=== PATIENT | female | born 1965 | race Caucasian/White ===

== ENCOUNTER → 2018-12-22 18:00 | Outpatient (CLI) | payer MEDICAID, SELFPAY ==
[2018-12-22 18:51] LABS: Basophils # 0.1 K/mm3 (0-0.2); Basophils % 0.7 % (0.1-2.0); Eosinophils # 1.8 K/mm3 (0.0-0.4); Eosinophils % 19.4 % (0.1-12.0); Hematocrit 41.4 % (37.0-47.0); Hemoglobin 12.9 g/dL (12.2-16.2); Lymphocytes # 2.9 K/mm3 (0.7-4.5); Lymphocytes % 30.9 % (10-50); Mean Corpuscular Hemoglobin 28.4 pg (27.0-31.2); Mean Corpuscular Volume 91.6 fl (81-99); Mean Platelet Volume 9.1 fl (7.4-10.4); Monocytes # 0.5 K/mm3 (0.1-1.0); Monocytes % 5.7 % (1.7-9.3); Neutrophils # 4.1 K/mm3 (1.8-7.8); Neutrophils % 43.3 % (37.0-80.0); Platelet Count 334 K/mm3 (142-424); Red Blood Count 4.53 M/mm3 (4.20-5.40); Red Cell Distribution Width 12.1 % (11.5-17.5); White Blood Count 9.5 K/mm3 (4.8-10.8)
[2018-12-22 18:59] LABS: Alanine Aminotransferase 30 U/L (12-78); Albumin Level 4.1 gm/dL (3.4-5.0); Albumin/Globulin Ratio 1.4 (1.1-1.8); Alkaline Phosphatase 82 U/L (46-116); Anion Gap 18.2 mEq/L (5-15); Aspartate Amino Transferase 17 U/L (15-37); Bilirubin,Total 0.2 mg/dL (0.2-1.0); Blood Urea Nitrogen 17 mg/dL (7-18); Carbon Dioxide 22 mmol/L (21.0-32.0); Chloride 103 mmol/L (98-107); Chol/HDL Ratio 6.9 (1-3.5); Cholesterol 180 mg/dL (140-200); Creatinine,Serum 0.76 mg/dL (0.55-1.02); Estimated Glomerular Filt Rate 80 ml/min (>60); GFR (African American) 97 ML/MIN (>60); Glucose 103 mg/dL (74-106); HDL Cholesterol 26 mg/dL (29-89); LDL Cholesterol 87 mg/dL (0-130); Potassium 4.2 mmoL/L (3.5-5.1); Sodium 139 mmol/L (136-145); T4 (Thyroxine) 10.8 ug/dl (4.7-13.3); Thyroid Stimulating Hormone 0.83 uIU/ml (0.358-3.740); Total Protein,Serum 7.1 gm/dL (6.4-8.2); Triglycerides 337 mg/dL (30-200); VLDL Cholesterol 67 mg/dL (0-40)
[2018-12-24 08:13] LABS: Hep A Ab, IgM Negative (Negative); Hepatitis B Core Antibody IgM Negative (Negative); Hepatitis B Surface Antigen Negative (Negative)
[2018-12-24 12:32] LABS: Hepatitis C Antibody <0.1 s/co ratio (0.0-0.9)
== END ==
PROVIDERS: Visit Provider Nurse Practitioner Family
DX: R10.9 Unspecified abdominal pain (principal)
CPT/HCPCS: 80053; 80061; 80074; 84436; 84443; 85025

== ENCOUNTER → 2018-12-27 12:33 | Outpatient (CLI) | payer MEDICAID, SELFPAY ==
[2018-12-27 12:34] LABS: Adenovirus F 40/41, stool Not Detected (NotDetected); Astrovirus Not Detected (NotDetected); Campylobacter Not Detected (NotDetected); Clostridium Difficile A/B, PCR Not Detected (NotDetected); Cryptosporidium Not Detected (NotDetected); Cyclospora Cayetanesis Not Detected (NotDetected); Entamoeba histolytica Not Detected (NotDetected); Enteroaggregative E coli Not Detected (NotDetected); Enteropathogenic E coli Not Detected (NotDetected); Enterotoxigenic E coli Not Detected (NotDetected); Giardia lamblia Not Detected (NotDetected); Norovirus Not Detected (NotDetected); Plesimonas Shigalloides, PCR Not Detected (NotDetected); Rotavirus A Not Detected (NotDetected); Salmonella, PCR Not Detected (NotDetected); Sapovirus Not Detected (NotDetected); Shiga-like toxin E coli Not Detected (NotDetected); Shigella Enterovasive E coli Not Detected (NotDetected); Vibrio Cholerae Not Detected (NotDetected); Vibrio, PCR Not Detected (NotDetected); Yersinia Entercolitica, PCR Not Detected (NotDetected)
== END ==
PROVIDERS: Visit Provider Emergency Medicine
DX: R19.7 Diarrhea, unspecified (principal)
CPT/HCPCS: 87507

== ENCOUNTER → 2018-12-29 08:49 | Outpatient (CLI) | payer MEDICAID, SELFPAY ==
--- NOTE | 2018-12-29 08:51 | US_ITS ---
PROCEDURE: US LIVER CLINICAL INDICATION: Enlarged liver COMPARISON: CT ABDOMEN PELVIS W CON from 12/26/2018 FINDINGS: The liver has an unremarkable appearance. There is appropriate direction of blood flow within a non dilated portal vein. Common bile duct is normal at 4 mm. There has been a prior cholecystectomy. Right kidney and pancreas have an unremarkable appearance. IMPRESSION: Status post cholecystectomy otherwise negative hepatic/right upper quadrant ultrasound Dictated by: Meliton Meredith MD 12/30/2018 06:05 Electronically signed by Meliton Meredith MD in [place] 12/30/2018 06:05
== END ==
PROVIDERS: PCP Emergency Medicine; Visit Provider Nurse Practitioner Family
DX: R16.0 Hepatomegaly, not elsewhere classified (principal)
CPT/HCPCS: 76705

== ENCOUNTER → 2019-01-31 10:41 | Outpatient (CLI) | payer MEDICAID, SELFPAY ==
--- NOTE | 2019-01-31 10:44 | MM_ITS ---
PROCEDURE: MM DIG SCREENING MAMM BI W/CAD CLINICAL INDICATION: Screening There is a history of breast cancer patient's cousin. COMPARISON: None, this is baseline exam TECHNIQUE: Standard CC and MLO images were obtained. R2 CAD reviewed. FINDINGS: Mild fibroglandular densities are seen in the subareolar regions of both breasts. There are 3 small asymmetric nodular densities upper portion left breast only definitely seen on the MLO projection. Since this is a baseline exam were recommended patient return for spot compression MLO view and 90 degree lateral view and rolled CC views and ultrasound may be necessary as well. There are no suspicious microcalcifications. IMPRESSION: Fibrofatty parenchyma with small asymmetric densities left breast BI-RAD Category: 0 Need Additional Imaging Evaluation FOLLOW-UP: IMM Immediate Follow-up Recommended (A letter has been sent to the patient regarding results of the study.) Dictated by: Dr. Chang Irene MD 02/02/2019 13:[address] Chang Irene MD in [place] 02/02/2019 13:18
== END ==
PROVIDERS: PCP Emergency Medicine; Visit Provider Nurse Practitioner Family
DX: Z12.31 Encounter for screening mammogram for malignant neoplasm of breast (principal)
CPT/HCPCS: 77067

== ENCOUNTER → 2019-02-27 13:30 | Outpatient (CLI) | payer MEDICAID, SELFPAY ==
--- NOTE | 2019-02-27 13:32 | US_ITS ---
PROCEDURE: MM DIG MAMM DX UNILAT LT CAD CLINICAL INDICATION: abn mamm Follow-up abnormal mammogram, follow-up asymmetric density left breast COMPARISON: MM DIG SCREENING MAMM BI W/CAD from 01/31/2019 US BREAST LT COMPLETE from 02/27/2019 TECHNIQUE: Spot compression views obtained of the left breast along with left breast ultrasound FINDINGS: Average fibroglandular tissue. The nodular areas noted on the mammogram 01/31/2019 appear to compress out as fibroglandular tissue. A these nodular densities were not evident on the orthogonal view. Left breast ultrasound: No solid or cystic abnormalities evident. IMPRESSION: No discrete lesion evident. Asymmetric densities may have been due to cysts which have since resolved or overlapping fibroglandular tissue BI-RAD Category: 2 Benign Finding(s) FOLLOW-UP: 1YR 1 Year Follow-up (A letter has been sent to the patient regarding results of the study.) Dictated by: Meliton Meredith MD 03/04/2019 10:55 Electronically signed by Meliton Meredith MD in [place] 03/04/2019 10:55
== END ==
PROVIDERS: PCP Nurse Practitioner Family; Visit Provider Nurse Practitioner Family
DX: R92.8 Other abnormal and inconclusive findings on diagnostic imaging of breast (principal)
CPT/HCPCS: 76641; 77065

== ENCOUNTER → 2020-04-22 10:14 | Outpatient (CLI) | payer MEDICAID, SELFPAY ==
[2020-04-22 11:21] LABS: Coronavirus 19 IgG Antibody Negative (Negative); Coronavirus 19 IgM Antibody Negative (Negative)
== END ==
PROVIDERS: Visit Provider Surgery
DX: Z01.818 Encounter for other preprocedural examination (principal); Z20.822 Contact with and (suspected) exposure to COVID-19; Z12.11 Encounter for screening for malignant neoplasm of colon; Z86.010 Personal history of colon polyps
CPT/HCPCS: 36415; 86328

== ENCOUNTER 2020-04-23 08:35 | Day surgery (SDC) | payer MEDICAID, SELFPAY ==
[2020-04-18 10:50] VITALS: BMI 25.4
[2020-04-23 08:50] VITALS: BP 148/88; PULSE 72; RESP 18; TEMP 36.3; O2SAT 97
[2020-04-23 09:08] VITALS: O2SAT 97
[2020-04-23 09:59] VITALS: BP 137/86; PULSE 77; RESP 16; TEMP 36.1; O2SAT 96
--- NOTE | 2020-04-23 10:00 | HMH.SCOPE ---
- Procedure: Date: 04/23/20 Patient Date of :: 1965 Procedure Performed:: Total colonoscopy to terminal ileum with multiple biopsies and polypectomy by snare and biopsy forceps Indications:: Patient presents for follow-up colonoscopy. EGD and colonoscopy were performed on 02/07/2019. She had a small diminutive hiatal hernia. Biopsies on upper endoscopy did reveal some chronic peptic duodenitis and reactive gastropathy as well as fundic gland polyps and findings of reflux esophagitis. Following these findings I had started her on proton pump inhibitors. Colonoscopy revealed multiple polyps. There were approximately 14 polyps removed. These returned as tubular adenoma x3 and she did have 2 sessile serrated adenomas. 1 of these was located at the hepatic flexure as a ridge polyp and was quite difficult to remove and assess. It was felt however that the polyp was removed in its entirety. The area was marked with Alyse ink. Due to this fact I had advocated 1 year follow-up colonoscopy. Of note, previous upper endoscopy and colonoscopy combined procedure time was 2 hours. Patient states that she still does have some chronic abdominal symptomatology with frequent looser stools and mid abdominal distention described as a ball . Of note, she has previously undergone cholecystectomy. Performing Provider:: Boogie Rojo MD Referring Provider:: Misbah Cazares MD Sedation:: MAC sedation Procedure:: Patient was taken to endoscopy procedure room. She was positioned in a lateral decubitus position. Adequate intravenous sedation was achieved with anesthesia titration of propofol. Variable stiffness Olympus colonoscope was inserted via the anus. Was advanced to the cecum with some minor difficulty due to floppiness and redundancy of the sigmoid colon. Within the cecum the ileocecal valve and appendiceal orifice were clearly identified. Colonoscope was advanced a short distance into the terminal ileum which appeared grossly normal. Colonoscope was withdrawn through the colon with careful surveillance. There were several biopsies obtained differentiating right and left colon as random right and random left biopsies. In the proximal transverse colon just proximal to the previous marking there was a tiny diminutive polyp removed with cold biopsy forceps. Descending colon there is a minuscule polyp removed with cold biopsy forceps. In the sigmoid colon there was a adenomatous appearing ridge polyp which was removed piecemeal fashion using cold snare. The area was then marked with Alyse ink. Sigmoid colon just distal to this is a tiny diminutive polyp removed with cold biopsy forceps. In the distal sigmoid there is a small polyp removed with cold cutting snare. In the rectum there was a hyperplastic appearing polyp removed with cold snare. Retroflexion within the rectum revealed no evidence of any pathologic internal hemorrhoids. Colonoscope was withdrawn. Findings:: She had a total of approximately 6 polyps removed. This most notable was sigmoid colon polyp as a ridge polyp removed in a piecemeal fashion using cold snare. This was marked with Alyse ink. Previous site of marking revealed no evidence of any recurrent polyps. Recommendations:: Likely repeat likely repeat colonoscopy 2 years. GI symptomatology likely dietary/functional/lifestyle. Complications:: None immediately apparent Estimated blood obtained (mL): 3 Comment:: Procedure time was approximately 55 minutes. She required 1300 mg of propofol.
--- NOTE | 2020-04-23 10:06 | HMH.ANESCL ---
[facility] Anesthesia Checklist - Patient Identification Patient Identification: Arm Band - Structural Data Admitted From: Home Planned Operative Procedure/s: colon Consent for Planned Operative Procedure(s) Verified: Yes Verified Documents: Surgical Consent - Chart Verification Results Verified: None - Additional verifications Anesthesia Reactions: No - Anesthesia Plan Anesthesia Risk discussed: Yes Anesthesia Plan: Verified ASA Class: III Anesthesia Type: General [facility] History I have reviewed the patient's past medical history: Yes Medical History: Reports:: Gastroesophageal Reflux Disease(GERD) Denies:: Cancer, Diabetes Mellitus Type 1, Diabetes Mellitus Type 2, Hypertension, Internal Pacemaker, MRSA, Seizures *Have you ever received a pneumonia vaccine?: No *Have you received a flu vaccine this season?: No Other Medical History: Reports: Other Anesthesia experience/problems:: none Other Surgeries: Yes: No Previous Surgery, Cholecystectomy, Colonoscopy, EGD, Hernia Repair, Tubal Ligation. No: Pacemaker Amputation: No Fractures: No - *Social History Last grade of school completed: Advanced degree Smoking Status: Current every day smoker Tobacco Type: cigarettes # Packs/Day (cigarettes): 1 Alcohol Intake: current Alcohol Intake Frequency:: a few times a month Substance Use Type: denies use *Occupational Status:: unemployed Housing: house Household Members: spouse *Travel in the last 8 weeks: None Family Hx:: Unable to obtain, No significant family history, Cancer
[2020-04-23 10:09] VITALS: BP 106/81; PULSE 79; RESP 16; O2SAT 97
[2020-04-23 10:19] VITALS: BP 139/73; PULSE 76; RESP 16; TEMP 36.1; O2SAT 98
== END 2020-04-23 10:22 | disposition home or self-care (01) ==
LOC: OUTP 08:36
PROVIDERS: PCP Emergency Medicine; Visit Provider Surgery
PROC: 0DJD8ZZ Inspection of Lower Intestinal Tract, Via Natural or Artificial Opening Endoscopic (ICD-10-PCS; CPT 45380; principal; 2020-04-23 09:30)
DX: Z12.11 Encounter for screening for malignant neoplasm of colon (principal); Z87.19 Personal history of other diseases of the digestive system; Z86.010 Personal history of colon polyps; K63.5 Polyp of colon; K21.9 Gastro-esophageal reflux disease without esophagitis; Z72.0 Tobacco use; Z79.899 Other long term (current) drug therapy
CPT/HCPCS: 45380; 45385; 45381

== ENCOUNTER 2020-05-21 13:43 | Emergency (ER) | payer MEDICAID, SELFPAY ==
[2020-05-21 13:44] VITALS: BP 141/93; PULSE 92; RESP 18; TEMP 36.9; O2SAT 97; BMI 24.0
[2020-05-21 14:20] VITALS: BP 149/90; PULSE 81; O2SAT 97
[2020-05-21 14:33] LABS: Alanine Aminotransferase 35 U/L (12-78); Albumin Level 5.1 g/dl (3.5-5.0); Albumin/Globulin Ratio 1.5 (1.1-1.8); Alkaline Phosphatase 84 U/L (38-126); Anion Gap 12.8 mEq/L (5-15); Aspartate Amino Transferase 37 U/L (14-36); Bilirubin,Total 0.3 mg/dl (0.2-1.3); Blood Urea Nitrogen 12 mg/dl (7-17); Carbon Dioxide 27 mmol/L (22.0-30.0); Chloride 106 mmol/L (98-107); Creatinine Clearance Estimated 64 mL/min (50-200); Estimated Glomerular Filt Rate 65 ml/min (>60); GFR (African American) 79 ML/MIN (>60); Globulin 3.3 g/dL (1.3-3.2); Glucose 131 mg/dl (74-100); Potassium 3.8 mmoL/L (3.5-5.1); Sodium 142 mmol/L (136-145); Total Protein,Serum 8.4 g/dl (6.3-8.2)
[2020-05-21 14:35] LABS: Basophils # 0.1 K/mm3 (0-0.2); Basophils % 0.8 % (0.1-2.0); Eosinophils # 0.3 K/mm3 (0.0-0.4); Eosinophils % 3.2 % (0.1-12.0); Hematocrit 45.8 % (37.0-47.0); Hemoglobin 14.8 g/dL (12.2-16.2); Lactic Acid 2.5 mmol/L (0.7-2.1); Lymphocytes # 2.8 K/mm3 (0.7-4.5); Lymphocytes % 31.1 % (10-50); Mean Corpuscular HGB Conc 32.4 g/dL (31.8-35.4); Mean Corpuscular Hemoglobin 30.1 pg (27.0-31.2); Mean Corpuscular Volume 92.9 fl (81-99); Mean Platelet Volume 8.3 fl (7.4-10.4); Monocytes # 0.5 K/mm3 (0.1-1.0); Monocytes % 5.6 % (1.7-9.3); Neutrophils # 5.3 K/mm3 (1.8-7.8); Neutrophils % 59.3 % (37.0-80.0); Platelet Count 285 K/mm3 (142-424); Red Blood Count 4.93 M/mm3 (4.20-5.40); White Blood Count 8.9 K/mm3 (4.8-10.8)
[2020-05-21 14:37] LABS: C-Reactive Protein 3.2 mg/L (0-4)
[2020-05-21 14:56] LABS: Erythrocyte Sedimentation Rate 8 mm/hr (0-30)
[2020-05-21 15:00] VITALS: BP 130/91; PULSE 80; O2SAT 98
--- NOTE | 2020-05-21 15:00 | HMH.EDGENADL ---
ED Disposition Clinical Impression: Infected tick bite of neck Qualifiers: Encounter type: initial encounter Qualified Code(s): S10.96XA - Insect bite of unspecified part of neck, initial encounter; L08.9 - Local infection of the skin and subcutaneous tissue, unspecified; W57.XXXA - Bitten or stung by nonvenomous insect and other nonvenomous arthropods, initial encounter Disposition: Home, Self-Care Condition on Discharge: Good Additional Instructions: Doxycycline as prescribed. Follow-up with primary care provider within 2 to 3 days. Return to the emergency department if increasing redness, swelling, pain, or temperature greater than 100.5 degrees. Prescriptions: Doxycycline Monohydrate [Monodox] 100 mg PO BID #28 cap Transmission Status: Pending to [email or web address] #[id number] Referrals: Gary Cazares MD [Primary Care Provider] - - Critical Care Critical Care Time: No Attestation: On 05/21/20, the high probability of a clinically significant, sudden or life threatening deterioration of the following system(s) required my full and direct attention, intervention and personal management. The time I documented below is in addition to time spent performing reported procedures but includes the following listed in this critical care notation. Medical Decision Making - Roland Inquiry Pt receiving controlled substance: No Vital Signs: 05/21/20 13:44 05/21/20 14:20 05/21/20 15:00 Temperature 98.5 F Temperature Source Oral Pulse Rate [Left Radial] 92 H 81 80 Respiratory Rate 18 Blood Pressure [Right Arm] 141/93 H 149/90 H 130/91 H Blood Pressure Mean [Right Arm] 109 109 104 Blood Pressure Source [Right Arm] Automatic Cuff Automatic Cuff Blood Pressure Position [Right Arm] Sitting Supine Supine 02 Sat by Pulse Oximetry 97 97 98 Oxygen Delivery Method Room Air Room Air Room Air - Lab Data Lab Results 05/21/20 14:12: WBC 8.9, RBC 4.93, Hgb 14.8, Hct 45.8, MCV 92.9, MCH 30.1, MCHC 32.4, RDW 13.0, Plt Count 285, MPV 8.3, Neut % (Auto) 59.3, Lymph % (Auto) 31.1, [place] % (Auto) 5.6, Eos % (Auto) 3.2, Baso % (Auto) 0.8, Neut # (Auto) 5.3, Lymph # (Auto) 2.8, [place] # (Auto) 0.5, Eos # (Auto) 0.3, Baso # (Auto) 0.1, ESR 8 05/21/20 14:12: Sodium 142, Potassium 3.8, Chloride 106, Carbon Dioxide 27, Anion Gap 12.8, BUN 12, Creatinine 0.90, Estimated Creat Clear 64, Estimated GFR 65, Est GFR ( Amer) 79, Glucose 131 H, Calcium 10.0, Total Bilirubin 0.3, AST 37 H, ALT 35, Alkaline Phosphatase 84, C-Reactive Protein 3.2, Total Protein 8.4 H, Albumin 5.1 H, Globulin 3.3 H, Albumin/Globulin Ratio 1.5 05/21/20 14:12: Lactate 2.5 H Result diagrams: 05/21/20 14:12 05/21/20 14:12 Orders (Tests/Meds): ORDERS Category Date Time Status Lyme (B. burgdorferi) PCR Stat Lab 05/21/20 15:18 Ordered Blood Culture Stat Micro 05/21/20 13:59 Received General Adult HPI - General Chief complaint: Skin/Abscess/Foreign Body Stated complaint: Swelling on Rt side of neck Time Seen by Provider: 05/21/20 15:00 Mode of Arrival: Ambulatory Limitations: No Limitations Description of Symptoms (Recalled from ER Triage Doc. by RN): Pt states she pulled a deer tick off her right side of her neck yesterday. Today she noticed a red area with a white streak and the tissue around the the area feels swollen. - History of Present Illness HPI narrative: Patient pulled a deer tick off of the right side of her neck at the base of the neck yesterday. There is a black dot at the site of the tick bite. The area right around the bite is swollen and there is a small elevated white streak extending caudad from a tick bite. No fever. No other symptoms. She is not sure whether she got all of the tick parts out. - Related Data Home Medications Medication Instructions Recorded Confirmed [place]-3 Fatty Acids/Fish Oil 1 each PO DAILY 02/06/19 05/21/20 [[place] 3 1,000 mg Softgel] Estrogen,Con/M-Progest Acet 1 tab PO DAILY 04/18/20
[2020-05-21 15:27] VITALS: BP 128/88; PULSE 81; RESP 20; TEMP 36.7; O2SAT 98
[2020-05-21 18:23] LABS: Reflex Lactic Add Lactic Reflex
[2020-05-25 13:10] LABS: Lyme B. burgdorferi PCR Blood Negative (Negative)
== END 2020-05-21 15:28 | disposition home or self-care (01) ==
PROVIDERS: Emergency Provider Emergency Medicine; PCP Emergency Medicine
DX: S10.96XA Insect bite of unspecified part of neck, initial encounter (principal); W57.XXXA Bitten or stung by nonvenomous insect and other nonvenomous arthropods, initial encounter; Z88.0 Allergy status to penicillin; F17.210 Nicotine dependence, cigarettes, uncomplicated; K21.9 Gastro-esophageal reflux disease without esophagitis
CPT/HCPCS: 80053; 83605; 85025; 85651; 86140; 87040; 87476; 99282

== ENCOUNTER 2022-03-12 09:54 | Emergency (ER) | payer MEDICAID, SELFPAY ==
--- NOTE | 2022-03-12 10:52 | EXP.UTC ---
Discharge Plan Disposition Patient Disposition: Home, Self-Care Condition: Good Prescriptions Prescriptions: New promethazine-DM 6.25-15 mg/5 mL Syrup 5 ml PO Q6H PRN (Reason: Cough) Qty: 240 0RF oseltamivir [Tamiflu] 75 mg capsule 75 mg PO BID Qty: 10 0RF methylprednisolone 4 mg Tablets,Dose Pack 4 mg PO DIRECTED Qty: 21 0RF Referrals Follow up/Referrals: Gary Cazares MD [Primary Care Provider] - See instructions Activity Restrictions/Add. Instructions Additional Instructions/Restrictions: Drink plenty of fluids. Take tylenol or ibuprofen for pain or fever. Take the medications as directed. Follow up with your regular doctor. GO TO THE ER FOR ANY WORSENING SYMPTOMS The cough medication (promethazine dm) will make you drowsy, so don't drive or operate heavy machinery after taking it. Clinical Impressions Clinical Impression: Influenza A Stand Alone Forms Stand Alone Forms: Work/School Release Instructions Patient Instructions: DI for Influenza -- Adult, Oseltamivir Discharge ED Provider: Elvis Marcos [facility] General Stated complaint: cough, congestion, fever, runny nose, body aches Time Seen by Provider: 03/12/22 10:52 History of Present Illness Provider Complaint: She states that for the past 2 days she has had sore throat, chills, body aches and low grade fever. Related Data Previous Rx's Medication Instructions Recorded methylprednisolone 4 mg tablets in 4 mg PO DIRECTED #21 tabs 03/12/22 a dose pack oseltamivir 75 mg capsule (Tamiflu) 75 mg PO BID #10 caps 03/12/22 promethazine-DM 6.25 mg-15 mg/5 mL 5 ml PO Q6H PRN Cough #240 mL 03/12/22 oral syrup Allergies Allergy/AdvReac Type Severity Reaction Status Date / Time Penicillins [PENICILLINS] Allergy Unknown Vomiting Verified 03/12/22 11:02 erythromycin base Allergy Vomiting Verified 03/12/22 11:02 [facility] Disclaimer: The information contained in this section may have been updated after the patient was seen, as this information can be updated by other users. Social History Smoking Status: Current every day smoker tobacco type: cigarettes packs per day: 1 second hand exposure: Yes alcohol intake: current substance use type: denies use current occupational status: unemployed Travel in the last 8 weeks: None household members: spouse housing: house number of children: 3 caffeine: Yes ROS Obtained: Yes All systems reviewed & no additional complaints except as documented Constitutional Constitutional: Reports chills and Reports fever(s) Eyes Eyes: Denies eye discharge ENT Ears, Nose, Mouth, and Throat: Reports as per HPI Cardiovascular Cardiovascular: Denies chest pain Respiratory Respiratory: Denies chest congestion and Reports cough Gastrointestinal Gastrointestingal: Reports nausea; Denies abdominal pain, constipation, cramping, diarrhea or vomiting Musculoskeletal Musculoskeletal: Denies arthralgias Integumentary/Breasts Skin/Breast: Denies rash Neurologic Neurologic: Denies paresthesias Physical Exam General General appearance: alert and in no apparent distress Head Head exam: atraumatic, normocephalic and normal inspection Eye Eye exam: Present normal appearance, PERRL and EOMI ENT ENT exam: Present normal exam, normal oropharynx, mucous membranes moist, TM's normal bilaterally and normal external ear exam Neck Neck exam: Present normal inspection, full ROM and trachea midline; Absent meningismus or lymphadenopathy Chest Chest inspection: Present normal inspection and symmetric chest wall rise; Absent tenderness Respiratory Respiratory exam: Present normal lung sounds bilaterally; Absent respiratory distress Cardiovascular Cardiovascular exam: Present regular rate and normal rhythm; Absent JVD Abdominal Exam Abdominal exam: Present soft and normal bowel sounds; Absent distention, tenderness
[2022-03-12 11:00] VITALS: BP 130/88; PULSE 77; RESP 18; TEMP 37.3; O2SAT 95; BMI 26.4
[2022-03-12 12:20] VITALS: BP 130/88; PULSE 77; RESP 18; TEMP 37.3
== END 2022-03-12 12:23 | disposition home or self-care (01) ==
PROVIDERS: Emergency Provider Nurse Practitioner Family; PCP Emergency Medicine
DX: J10.1 Influenza due to other identified influenza virus with other respiratory manifestations (principal)
CPT/HCPCS: 99212; G0463

== ENCOUNTER 2022-03-21 07:44 | Emergency (ER) | payer MEDICAID, SELFPAY ==
[2022-03-21 07:45] VITALS: BP 115/80; PULSE 91; RESP 18; TEMP 37.2; O2SAT 93; BMI 25.4
[2022-03-21 07:57] VITALS: BP 115/80; PULSE 92; RESP 16; O2SAT 100
[2022-03-21 08:01] VITALS: BP 118/74; PULSE 92; O2SAT 95
--- NOTE | 2022-03-21 08:14 | HMH.EDGENADL ---
Discharge Plan Disposition Patient Disposition: Home, Self-Care Condition: Good Prescriptions Prescriptions: New amoxicillin-pot clavulanate 875-125 mg tablet 1 tab PO Q12H 7 Days Qty: 14 0RF ondansetron 4 mg tablet,disintegrating 4 mg PO Q6H PRN (Reason: nausea and vomiting) Qty: 30 0RF No Action promethazine-DM 6.25-15 mg/5 mL Syrup 5 ml PO Q6H PRN (Reason: Cough) Qty: 240 0RF oseltamivir [Tamiflu] 75 mg capsule 75 mg PO BID Qty: 10 0RF methylprednisolone 4 mg Tablets,Dose Pack 4 mg PO DIRECTED Qty: 21 0RF Referrals Follow up/Referrals: Gary Cazares MD [Primary Care Provider] - See instructions Activity Restrictions/Add. Instructions Additional Instructions/Restrictions: Take antibiotics as prescribed, follow-up with your primary care provider. If significant worsening or no significant improvement over the next few days, feel free to return to the emergency department for repeat evaluation Clinical Impressions Clinical Impression: Otitis media Instructions Patient Instructions: Middle Ear Infection, Amoxicillin and Clavulanic Acid Print Language Print Language: Icelandic Discharge ED Provider: Harish Lewis General Adult HPI General Chief complaint: Ear Stated complaint: Right/left ear ache Time Seen by Provider: 03/21/22 08:11 Mode of Arrival: Ambulatory Source of Information: Patient Limitations: No Limitations Description of Symptoms (Recalled from ER Triage Doc. by RN): Pt c/o jia ear pain, recent diagnosis of ear infection and flu, states has finished her antibiotics already. History of Present Illness HPI narrative: 56-year-old female recently diagnosed with influenza A, treated with Tamiflu, has completed course of medication. She presents back today with bilateral ear discomfort, markedly worse on the left. Denies fever, chills, nausea, vomiting, does report some mild congestion and anterior cervical lymphadenopathy. Related Data Previous Rx's Medication Instructions Recorded methylprednisolone 4 mg tablets in 4 mg PO DIRECTED #21 tabs 03/12/22 a dose pack oseltamivir 75 mg capsule (Tamiflu) 75 mg PO BID #10 caps 03/12/22 promethazine-DM 6.25 mg-15 mg/5 mL 5 ml PO Q6H PRN Cough #240 mL 03/12/22 oral syrup amoxicillin 875 mg-potassium 1 tab PO Q12H 7 days #14 tabs 03/21/22 clavulanate 125 mg tablet ondansetron 4 mg disintegrating 4 mg PO Q6H PRN nausea and 03/21/22 tablet vomiting #30 tabs Allergies Allergy/AdvReac Type Severity Reaction Status Date / Time Penicillins [PENICILLINS] Allergy Unknown Vomiting Verified 03/12/22 11:02 erythromycin base Allergy Vomiting Verified 03/12/22 11:02 [facility] Disclaimer: The information contained in this section may have been updated after the patient was seen, as this information can be updated by other users. Social History Smoking Status: Current every day smoker tobacco type: cigarettes packs per day: 1 second hand exposure: Yes alcohol intake: current substance use type: denies use current occupational status: unemployed Travel in the last 8 weeks: None household members: spouse housing: house number of children: 3 caffeine: Yes ROS Obtained: Yes Systems reviewed as appropriate & no additional complaints except as documented Constitutional Constitutional: Reports system reviewed and no additional complaints, except as documented Eyes Eyes: Reports system reviewed and no additional complaints, except as documented ENT Ears, Nose, Mouth, and Throat: Reports system reviewed and no additional complaints, except as documented and Reports as per HPI Cardiovascular Cardiovascular: Reports system reviewed and no additional complaints, except as documented Respiratory Respiratory: Reports system reviewed and no additional complaints, except as documented Gastrointestinal Gastrointestingal: Reports system reviewed and no ad
[2022-03-21 08:30] VITALS: BP 120/79; PULSE 94; RESP 16; O2SAT 95
[2022-03-21 08:43] VITALS: BP 120/79; PULSE 93; RESP 20; TEMP 37.2; O2SAT 97
== END 2022-03-21 08:44 | disposition home or self-care (01) ==
PROVIDERS: Emergency Provider Emergency Medicine; PCP Emergency Medicine
DX: H66.92 Otitis media, unspecified, left ear (principal); H92.01 Otalgia, right ear; J10.1 Influenza due to other identified influenza virus with other respiratory manifestations; R11.2 Nausea with vomiting, unspecified; R05.9 Cough, unspecified; F17.210 Nicotine dependence, cigarettes, uncomplicated; Z79.52 Long term (current) use of systemic steroids; Z79.899 Other long term (current) drug therapy; Z88.0 Allergy status to penicillin; Z88.1 Allergy status to other antibiotic agents; Z88.3 Allergy status to other anti-infective agents
CPT/HCPCS: 96372; 99284

== ENCOUNTER → 2022-11-12 23:32 | Outpatient (CLI) | payer MEDICAID, SELFPAY ==
[2022-11-12 19:09] LABS: Basophils % 0.4 % (0.1-2.0); Eosinophils # 0.2 K/mm3 (0.0-0.4); Eosinophils % 2.8 % (0.1-12.0); Hemoglobin 14.9 g/dL (12.2-16.2); Lymphocytes # 3.1 K/mm3 (0.7-4.5); Mean Corpuscular HGB Conc 31.6 g/dL (31.8-35.4); Mean Corpuscular Hemoglobin 29.2 pg (27.0-31.2); Mean Corpuscular Volume 92.2 fl (81-99); Mean Platelet Volume 9.5 fl (7.4-10.4); Monocytes # 0.6 K/mm3 (0.1-1.0); Monocytes % 7.2 % (1.7-9.3); Neutrophils # 4.6 K/mm3 (1.8-7.8); Neutrophils % 53.6 % (37.0-80.0); Platelet Count 296 K/mm3 (142-424); Red Blood Count 5.09 M/mm3 (4.20-5.40); Red Cell Distribution Width 12.5 % (11.5-17.5); White Blood Count 8.6 K/mm3 (4.8-10.8)
[2022-11-12 19:41] LABS: Alanine Aminotransferase 34 U/L (12-78); Albumin/Globulin Ratio 1.6 (1.1-1.8); Alkaline Phosphatase 99 U/L (38-126); Anion Gap 16.1 mEq/L (5-15); Aspartate Amino Transferase 34 U/L (14-36); Bilirubin,Total 0.5 mg/dl (0.2-1.3); Blood Urea Nitrogen 17 mg/dl (7-17); Calcium 10.8 mg/dl (8.4-10.2); Carbon Dioxide 28 mmol/L (22.0-30.0); Chloride 104 mmol/L (98-107); Chol/HDL Ratio 4.7 (1-3.5); Cholesterol 220 mg/dl (140-200); Estimated Glomerular Filt Rate 87 ml/min (>60); GFR (African American) 105 ML/MIN (>60); Globulin 3.1 g/dL (1.3-3.2); Glucose 104 mg/dl (74-100); HDL Cholesterol 47 mg/dl (40-60); Potassium 4.1 mmoL/L (3.5-5.1); Sodium 144 mmol/L (136-145); Total Protein,Serum 8.1 g/dl (6.3-8.2); Triglycerides 269 mg/dl (30-150); VLDL Cholesterol 54 mg/dL (0-40)
[2022-11-12 19:50] LABS: 25-OH Vitamin D, Total 30.7 ng/mL (30-100)
[2022-11-12 19:52] LABS: Direct LDL Cholesterol 125.53 mg/dL (100-129)
== END ==
PROVIDERS: PCP Emergency Medicine; Visit Provider Nurse Practitioner Family
DX: R53.83 Other fatigue (principal); H66.90 Otitis media, unspecified, unspecified ear; Z79.899 Other long term (current) drug therapy
CPT/HCPCS: 80053; 80061; 82306; 84443; 85025

== ENCOUNTER 2023-06-11 10:28 | Day surgery (SDC) | payer MEDICAID, SELFPAY ==
[2023-06-09 11:08] VITALS: BMI 26.4
[2023-06-11] MEDS: LACTATED RINGERS 1000ML 1,000 ML 25 ML IV (10:41)
[2023-06-11 10:45] VITALS: BP 126/75; PULSE 75; RESP 18; TEMP 36.8; O2SAT 95
--- NOTE | 2023-06-11 11:02 | HMH.SCOPE ---
Procedure: Date: 06/11/23 Patient Date of :: 1965 Procedure Performed:: Colonoscopy with polypectomy using biopsy Indications:: Patient is a 57-year-old female. I had performed colonoscopy and EGD on her on 02/07/2019. She had multiple polyps. Of these she had 3 tubular adenomas and 2 sessile serrated adenomas. 1 of these was at the hepatic flexure as a ridge polyp and assessment was somewhat difficult. It was marked with Alyse ink. Follow-up colonoscopy was performed on 04/23/2020 and she had numerous hyperplastic polyps and a couple of tubular adenomas. 1 of these was a ridge polyp at the sigmoid colon which required removal in a piecemeal fashion and marking with Alyse ink. Please note that both of her procedures previously were prolonged. Performing Provider:: Boogie Rojo MD Referring Provider:: Johnny Maradiaga Sedation:: MAC sedation Procedure:: Patient history was obtained and appropriate physical examination was performed. Patient's medications and allergies were reviewed. Informed consent was obtained after explaining the benefits, alternatives, and risks of the procedure including, but not limited to, bleeding, perforation, missed lesions, and adverse reaction to anesthesia medications. Patient was transported to endoscopy procedure room. Patient was connected to monitoring devices. Throughout the procedure the patient's blood pressure, pulse, and oxygen saturations were monitored continuously. Patient identification and planned procedure were verified by the staff. Patient was positioned in lateral decubitus position. Digital anorectal exam was performed. Variable stiffness Olympus colonoscope was inserted and advanced under direct visualization to the cecum. Adequacy of the colonic preparation was noted. The colonoscope was advanced a short distance into the terminal ileum. The colonoscope was then slowly withdrawn while carefully examining the color, texture, anatomy, and integrity of the mucosoa circumferentially. Within the rectum retroflexion was performed. Colonoscope was then withdrawn. . Colonoscope was inserted via the anus. Was advanced to the cecum. Throughout the colon colonic preparation was poor with opaque particulate stool filling the colon. However, in the right colon there was stool densely adherent to the bello and despite high-volume trans colonoscopic irrigation this was unable to be cleared. Incidentally there was noted to be a diminutive polyp in the cecum and this was removed with cold biopsy forceps. However visualization was difficult and there was almost exudative tissue present. A couple of right colon biopsies were obtained. Colonoscope was then withdrawn. There were no large polyps or obstructing lesions. Previously noted areas of Alyse tattoo ink were visualized however visualization was poor due to the suboptimal prep. . Findings:: Poor colonic preparation with particulate liquid stool filling the colon and stool densely adherent to the right colon mucosa Diminutive polyp in the cecum Visualization poor Recommendations:: Recommend repeat colonoscopy with multi day prep. Complications:: None immediately apparent Estimated blood obtained (mL): 1 Colonoscopy Component Colonoscopy Component Was a colonoscopy performed during today's procedure?: Yes Recommended follow up colonoscopy of at least 10 years?: No If no, follow up colonoscopy recommended in ___ years?: See above Reason for not recommending >/= 10 yr follow-up interval?: See above
--- NOTE | 2023-06-11 11:30 | P.PNANES_ITS ---
[facility] Disclaimer: The information contained in this section may have been updated after the patient was seen, as this information can be updated by other users. Medical History Insomnia Surgical History (Updated 06/11/23 @ 10:44 by Rc Leiva RN) History of hernia repair History of tubal ligation Family History (Updated 06/11/23 @ 10:45 by Rc Leiva RN) Other Family history of cancer Social History Smoking Status: Current every day smoker tobacco type: cigarettes packs per day: 1 second hand exposure: Yes alcohol intake: current substance use type: denies use current occupational status: unemployed Travel in the last 8 weeks: None household members: spouse housing: house number of children: 3 caffeine: Yes [facility] Anesthesia Checklist Patient Identification Patient Identification: Arm Band Structural Data Admitted From: Home Planned Operative Procedure/s: colonoscopy Consent for Planned Operative Procedure(s) Verified: Yes Verified Documents: Surgical Consent and History and Physical NPO Status Verified Time NPO: 00:00 Additional verifications Anesthesia Reactions: No Airway Assessment Mallampati Score:: Class II C-Spine Mobility Assessed: Yes TMJ Mobility Assessed: Yes Dentition: Good Dentition Neurological Assessment Level of Consciousness: Awake and Alert Anesthesia Plan Anesthesia Risk discussed: Yes Anesthesia Plan: Verified ASA Class: II Anesthesia Type: MAC
[2023-06-11 11:40] VITALS: BP 104/49; PULSE 79; RESP 19; TEMP 36.3; O2SAT 95
[2023-06-11 11:50] VITALS: BP 109/53; PULSE 74; RESP 17; O2SAT 97
[2023-06-11 12:00] VITALS: BP 108/68; PULSE 78; RESP 18; O2SAT 96
[2023-06-11 12:05] VITALS: BP 108/68; PULSE 78; RESP 18; O2SAT 96
== END 2023-06-11 12:13 | disposition home or self-care (01) ==
PROVIDERS: PCP Nurse Practitioner Family; Visit Provider Surgery
PROC: 0DJD8ZZ Inspection of Lower Intestinal Tract, Via Natural or Artificial Opening Endoscopic (ICD-10-PCS; CPT 45380; principal; 2023-06-11 11:30)
DX: Z12.11 Encounter for screening for malignant neoplasm of colon (principal); Z86.010 Personal history of colon polyps; Z91.199 Patient's noncompliance with other medical treatment and regimen due to unspecified reason; D12.0 Benign neoplasm of cecum
CPT/HCPCS: 45380

== ENCOUNTER 2023-10-15 08:32 | Day surgery (SDC) | payer MEDICAID, SELFPAY ==
[2023-10-12 16:22] VITALS: BMI 25.4
[2023-10-15 08:45] VITALS: BP 143/88; PULSE 73; RESP 18; TEMP 36.6; O2SAT 99
[2023-10-15] MEDS: LACTATED RINGERS 1000ML 1,000 ML 25 ML IV (08:48)
--- NOTE | 2023-10-15 09:04 | EXP.ANES.CKL ---
[facility] Disclaimer: The information contained in this section may have been updated after the patient was seen, as this information can be updated by other users. Medical History Insomnia Surgical History (Updated 10/15/23 @ 08:44 by Lynn Arvizu RN) History of colonoscopy History of hernia repair History of tubal ligation Family History Other Family history of cancer Social History Smoking Status: Current every day smoker tobacco type: cigarettes packs per day: 1 second hand exposure: Yes alcohol intake: never substance use type: denies use current occupational status: unemployed Travel in the last 8 weeks: None household members: spouse housing: house number of children: 3 caffeine: Yes [facility] Anesthesia Checklist Patient Identification Patient Identification: Arm Band Structural Data Admitted From: Home Planned Operative Procedure/s: Colonoscopy Consent for Planned Operative Procedure(s) Verified: Yes Verified Documents: Surgical Consent and History and Physical NPO Status Verified Time NPO: 00:00 Additional verifications Anesthesia Reactions: No Airway Assessment Mallampati Score:: Class II C-Spine Mobility Assessed: Yes TMJ Mobility Assessed: Yes Dentition: Good Dentition Neurological Assessment Level of Consciousness: Awake, Alert and Appropriate Anesthesia Plan Anesthesia Risk discussed: Yes Anesthesia Plan: Verified ASA Class: II Anesthesia Type: MAC
--- NOTE | 2023-10-15 09:25 | P.PCN_ITS ---
Procedure: Date: 10/15/23 Patient Date of :: 1965 Procedure Performed:: Total colonoscopy to terminal ileum with multiple polypectomy Indications:: Patient presents for another colonoscopy. I had performed colonoscopy and EGD on her on 02/07/2019. She had multiple polyps. Of these she had 3 tubular adenomas and 2 sessile serrated adenomas. 1 of these was at the hepatic flexure as a ridge polyp and assessment was somewhat difficult. It was marked with Alyse ink. Follow-up colonoscopy was performed on 04/23/2020 and she had numerous hyperplastic polyps and a couple of tubular adenomas. 1 of these was a ridge polyp at the sigmoid colon which required removal in a piecemeal fashion and marking with Alyse ink. She underwent follow-up colonoscopy on 06/11/2023. Throughout the colon colonic preparation was poor with opaque particulate stool filling the colon. This was densely adherent to the bello of the right colon and unable to be cleared. She did have a cecal tubular adenoma removed. Recommendations were for follow-up colonoscopy with multi day maximum prep. She underwent preparation with several days of MiraLAX followed by magnesium citrate and Clenpiq. . Performing Provider:: Boogie Rojo MD Referring Provider:: Johnny Maradiaga Sedation:: MAC sedation Procedure:: Patient history was obtained and appropriate physical examination was performed. Patient's medications and allergies were reviewed. Informed consent was obtained after explaining the benefits, alternatives, and risks of the procedure including, but not limited to, bleeding, perforation, missed lesions, and adv erse reaction to anesthesia medications. Patient was transported to endoscopy procedure room. Patient was connected to monitoring devices. Throughout the procedure the patient's blood pressure, pu lse, and oxygen saturations were monitored continuously. Patient identification and planned procedure were verified by the staff. Patient was positioned in lateral decubitus position. Digital anorectal exam was performed. Variable stiffness Olympus colonoscope was inserted and advanced under direct visualization to the cecum. Adequacy of the colonic preparation was noted. The colonoscope was advanced a short distance into the terminal ileum. The colonoscope was then slowly withdrawn while carefully examining the color, texture, anatomy, and integrity of the mucosoa circumferentially. Within the rectum retroflexion was performed. Colonoscope was then withdrawn. Impression: Colonic preparation was somewhat suboptimal with a large amount of opaque somewhat particulate stool throughout the colon. Much of this was able to be cleared with high-volume trans colonoscopic irrigation and suctioning. There was some stool adherent to the bello regionally and some portions of the colon. In the ascending colon there was a small polyp removed with cold snare. The descending colon is a small polyp removed with cold snare. Sigmoid colon polyp removed with cold snare. In the distal sigmoid there is a small polyp removed with cold snare. In the rectosigmoid region there was a polyp removed with cold snare, possibly hyperplastic. She did have some degree of rare pandiverticulosi s. . Findings:: Polyps as noted above, total of 5 polyps, small removed with cold snare Rare pandiverticulosis Suboptimal preparation . Recommendations:: Likely repeat colonoscopy within 2 years with once again multiday maximal prep. Complications:: None immediately apparent Estimated blood obtained (mL): 1 Colonoscopy Component Colonoscopy Component Was a colonoscopy performed during today's procedure?: Yes Recommended follow up colonoscopy of at least 10 years?: No If no, follow up colonoscopy recommended in ___ years?: 2 Reason for not recommending >/= 10 yr follow-up interval?: See above
[2023-10-15 09:38] VITALS: O2SAT 99
[2023-10-15 10:20] VITALS: BP 122/76; PULSE 81; RESP 16; TEMP 36.8; O2SAT 95
[2023-10-15 10:30] VITALS: BP 107/77; PULSE 76; RESP 18; O2SAT 95
[2023-10-15 10:40] VITALS: BP 128/63; PULSE 79; RESP 18; O2SAT 96
[2023-10-15 10:50] VITALS: BP 118/73; PULSE 77; RESP 18; O2SAT 95
== END 2023-10-15 10:50 | disposition home or self-care (01) ==
PROVIDERS: PCP Internal Medicine; Visit Provider Surgery
PROC: 0DJD8ZZ Inspection of Lower Intestinal Tract, Via Natural or Artificial Opening Endoscopic (ICD-10-PCS; CPT 45385; principal; 2023-10-15 09:30)
DX: Z12.11 Encounter for screening for malignant neoplasm of colon (principal); Z09 Encounter for follow-up examination after completed treatment for conditions other than malignant neoplasm; Z86.010 Personal history of colon polyps; D12.7 Benign neoplasm of rectosigmoid junction; D12.2 Benign neoplasm of ascending colon; D12.4 Benign neoplasm of descending colon; D12.5 Benign neoplasm of sigmoid colon; K57.90 Diverticulosis of intestine, part unspecified, without perforation or abscess without bleeding
CPT/HCPCS: 45385; J2704; J7120

== ENCOUNTER 2023-12-28 09:33 | Outpatient (CLI) | payer MEDICAID, SELFPAY ==
[2023-12-28 10:33] LABS: Hemoglobin A1C 5.6 % (4.0-6.0)
[2023-12-29 10:14] LABS: Insulin Level Total 10.8 uIU/mL (2.6-24.9)
[2023-12-29 12:20] LABS: Estradiol <5.0 pg/mL (.); Progesterone 0.1 ng/mL (.)
== END 2023-12-28 23:59 | disposition home or self-care (01) ==
LOC: LAB 09:34
PROVIDERS: PCP Nurse Practitioner Family; Visit Provider Obstetrics & Gynecology
DX: R23.2 Flushing (principal)
CPT/HCPCS: 36415; 82670; 83036; 83525; 84144

== ENCOUNTER 2024-06-26 12:04 | Day surgery (SDC) | payer MEDICAID, SELFPAY ==
[2024-06-21 10:47] VITALS: BMI 26.4
[2024-06-26] MEDS: LACTATED RINGERS 1000ML 1,000 ML 50 ML IV (12:27)
[2024-06-26 12:29] VITALS: BP 137/82; PULSE 82; RESP 17; TEMP 36.6; O2SAT 97
--- NOTE | 2024-06-26 13:01 | P.PNANES_ITS ---
[facility] Disclaimer: The information contained in this section may have been updated after the patient was seen, as this information can be updated by other users. Medical History IBS (irritable bowel syndrome) Abdominal bloating Fluctuation of weight Fatigue Cervical cancer screening Insomnia Surgical History History of cholecystectomy History of colonoscopy History of hernia repair History of tubal ligation Family History Other Family history of cancer Social History Smoking Status: Current every day smoker tobacco type: cigarettes packs per day: 1 second hand exposure: Yes alcohol intake: current alcohol intake frequency: a few times a month substance use type: denies use current occupational status: unemployed Travel in the last 8 weeks: None household members: spouse housing: house number of children: 3 caffeine: Yes Have you lived/traveled outside [place] in past 30 days?: No Contact w/someone who lives/traveled outside US past 30 days?: No Exposure to someone with infectious disease in past 14 days?: No Do you have a fever (greater than 100.4 F or 38 C)?: No Have you tested positive for COVID-19: No Exposed to someone with COVID-19 in past 14 days?: No Do you have a sore throat?: No Do you have a cough?: No Do you have any weakness?: No Do you have any diarrhea?: No Are you experiencing any unusual bleeding?: No Do you have any muscle aches/pain?: No Do you have any abdominal pain?: No Are you experiencing loss of taste or smell?: No [facility] Anesthesia Checklist Patient Identification Patient Identification: Arm Band Structural Data Admitted From: Home Planned Operative Procedure/s: EGD Consent for Planned Operative Procedure(s) Verified: Yes Verified Documents: Surgical Consent and History and Physical NPO Status Verified Time NPO: 00:00 Additional verifications Anesthesia Reactions: No Airway Assessment Mallampati Score:: Class II C-Spine Mobility Assessed: Yes TMJ Mobility Assessed: Yes Dentition: Good Dentition Neurological Assessment Level of Consciousness: Awake, Alert and Appropriate Anesthesia Plan Anesthesia Risk discussed: Yes Anesthesia Plan: Verified ASA Class: II Anesthesia Type: MAC
--- NOTE | 2024-06-26 13:55 | EXP.HP ---
History of Present Illness *Admission Date: 06/26/24 *Reason for visit:: Bloating/nausea and vomiting *History of present illness: Mrs. Alejandra Camacho is a 58-year-old female who is here for diagnostic upper endoscopy secondary to nausea, vomiting, bloating, reflux and dyspepsia. The examination is deemed medically necessary for upper endoscopy. The patient has been seen, interviewed and examined prior to the procedure by both myself and the anesthesia provider.. [facility] Disclaimer: The information contained in this section may have been updated after the patient was seen, as this information can be updated by other users. Medical History (Updated 06/26/24 @ 13:57 by Akbar Jonas II, MD) IBS (irritable bowel syndrome) Abdominal bloating Fluctuation of weight Fatigue Cervical cancer screening Insomnia Surgical History History of cholecystectomy History of colonoscopy History of hernia repair History of tubal ligation Family History Other Family history of cancer Social History Smoking Status: Current every day smoker tobacco type: cigarettes packs per day: 1 second hand exposure: Yes alcohol intake: current alcohol intake frequency: a few times a month substance use type: denies use current occupational status: unemployed Travel in the last 8 weeks: None household members: spouse housing: house number of children: 3 caffeine: Yes Have you lived/traveled outside [place] in past 30 days?: No Contact w/someone who lives/traveled outside [place] past 30 days?: No Exposure to someone with infectious disease in past 14 days?: No Do you have a fever (greater than 100.4 F or 38 C)?: No Have you tested positive for COVID-19: No Exposed to someone with COVID-19 in past 14 days?: No Do you have a sore throat?: No Do you have a cough?: No Do you have any weakness?: No Do you have any diarrhea?: No Are you experiencing any unusual bleeding?: No Do you have any muscle aches/pain?: No Do you have any abdominal pain?: No Are you experiencing loss of taste or smell?: No Other Medical History Have you received the Flu Vaccine for this season: No Have you received the Pneumonia Vaccine: No Review of Systems Review of Systems Review of systems (narrative): Negative *Cardiovascular Comments: Negative *Gastrointestinal Comments: Negative *Genitourinary Comments: Negative *Musculoskeletal Comments: Negative *Neurologic Comments: Negative Meds Home Medications and Allergies Home Medications ?Medication ?Instructions ?Recorded ?Confirmed ?Type No Known Home Medications 06/21/24 06/26/24 History New Prescriptions to Start Prescriptions: Allergies Allergy/AdvReac Type Severity Reaction Status Date / Time Penicillins (PENICILLINS) Allergy Unknown Vomiting Verified 06/26/24 12:29 erythromycin base Allergy Vomiting Verified 06/26/24 12:29 Exam Data for Last 24 hours Vital signs and Labs for Last 24 Hours: Temp Pulse Resp BP Pulse Ox O2 Del Method 97.8 F 82 17 137/82 97 Room Air 06/26/24 12:29 06/26/24 12:29 06/26/24 12:29 06/26/24 12:29 06/26/24 12:29 06/26/24 12:29 *Routine HEENT Exam Head: Present normocephalic Eye: Present EOMI and PERRL ENT: Present mucous membranes moist *Routine Neck Exam Neck: Present supple *Routine Respiratory Exam Respiratory: Present CTA bilaterally *Routine Cardiovascular Exam Cardiovascular: Present RRR *Routine Abdominal Exam Abdominal: Present soft and normoactive bowel sounds; Absent tenderness *Routine Rectal Exam Rectal:: deferred *Routine Genitalia Exam Genitalia:: deferred *Routine Extremities Exam Extremities: Absent cyanosis, clubbing or edema *Routine Skin Exam Skin: Present warm; Absent rash *Routine Neurological Exam Neurological: Present alert and oriented X3 Assessment and Plan *Assessment and plan (1) Nausea & vomiting: Status: Acute Category: Medical Code(s): R11.2 - Nausea with vomiting, unspecified (2) Acid reflux: Status: Acute Category: Medical Code(s): K21.9 - Gastro-esophageal reflux disease without esophagitis (3) Abdominal distention: Status: Acute Category: Medical Code(s): R14.0 - Abdominal distension (gaseous) (4) Bloating: Status: Acute Category: Medical Code(s): R14.0 - Abdominal distension (gaseous) Plan A/P: 1. Nausea/vomiting, reflux, regurgitation and bloating is the preprocedural diagnosis. The patient will be anesthetized/sedated using MAC sedation. The patient has been seen and examined. Cardiac and lung assessment prior to the examination is stable. Proceed with planned EGD
[2024-06-26 14:00] VITALS: O2SAT 98
--- NOTE | 2024-06-26 14:09 | P.PCN_ITS ---
[facility] Procedure Note Date: 06/26/24 Time: 14:20 Procedure Note:: Upper Endoscopy Procedure Report: Esophagogastroduodenoscopy with cold biopsies and TTS balloon dilation Endoscopost: Akbar Jonas II, MD Referring Physician: DEBORAH Godinez Date of Procedure: June 26, 2024 Equipment: Olympus GIF 190 standard upper endoscope Sedation: MAC sedation Indications: Mrs. Murray is a 58-year-old female who is here for diagnostic upper endoscopy secondary to intractable heartburn and reflux. She reports bloating, belching and early satiety. At nighttime, she will sometimes get globus sensation. She also has a history of diarrhea predominant irritable bowel syndrome. She did improve some with Xifaxan. She is now on a fiber bowel regimen (combined MiraLAX plus Citrucel) which has helped some. She does report incomplete bowel evacuation. Her last EGD was 7 years ago (Boogie Rojo MD). The patient is not on PPI therapy. She formerly took digestive enzymes with probiotics. Her last colonoscopy was September 2023 and she did have 5 polyps (small serrated adenoma x 1, tubular adenoma x 1 and hyperplastic polyps x 3) which were removed. Procedure: Prior to the procedure, a history and physical exam was performed, and patient's medications and allergies were reviewed. The risks, benefits and alternatives of the sedation and procedure were discussed with the patient. All questions were answered and informed consent was obtained. The patient was brought to the procedure room. Patient identification and proposed procedure were verified by the physician and the nurse. The patient was placed in a left lateral decubitus position and the scope was passed under direct vision. Throughout the procedure, the patient's blood pressure, pulse, and oxygen saturations were monitored continuously. The upper GI endoscopy was accomplished without difficulty. The patient tolerated the procedure well. Findings: The scope was passed directly into the upper esophagus and advanced to the third portion of the duodenum. The post bulbar duodenum and ampulla were normal with normal mucosa and conniventes. Cold biopsies were taken from the first portion of duodenum and duodenal bulb to rule out celiac disease. There was some nodularity of the duodenal bulb with mild peptic duodenitis. The scope was withdrawn through a normal pylorus into the stomach. There was bile reflux with mild linear reactive gastropathy of the antrum. Biopsies were taken from the antrum. The body and fundus of the stomach were normal. Upon retroflexion there was a small 2 cm hiatal hernia. The scope was then withdrawn into the esophagus. There was grade A reflux esophagitis with a single tongue of salmon- colored mucosa that was biopsied to rule out short segment Waddell's esophagus. There were strong tertiary contractions and evidence of moderate esophageal dysmotility. There were 2 small proximal esophageal inlet patches. The entire esophagus was dilated to 60 Ecuadorean/20 mm with a TTS hydrostatic balloon. The remainder of the esophageal mucosa was normal. Impression: 1. Grade A reflux esophagitis (LA classification) with moderate esophageal dysmotility and small 2 cm hiatal hernia 2. Small proximal esophageal inlet patches x 2 3. Bile reflux with mild linear reactive gastropathy of antrum Plan: I will follow-up the biopsies. I would recommend PPI therapy or Voquezna. I would also recommend OTC herbal Iberogast twice daily. I would continue the fiber bowel regimen (combined MiraLAX plus Citrucel) daily. We will discuss additional treatment options.
[2024-06-26 14:23] VITALS: BP 144/80; PULSE 94; RESP 18; O2SAT 92
[2024-06-26 14:33] VITALS: BP 118/82; PULSE 88; RESP 18; O2SAT 97
[2024-06-26 14:43] VITALS: BP 126/70; PULSE 92; RESP 18; O2SAT 96
[2024-06-26 14:53] VITALS: BP 107/78; PULSE 94; RESP 18; O2SAT 96
== END 2024-06-26 15:00 | disposition home or self-care (01) ==
PROVIDERS: PCP Nurse Practitioner Family; Visit Provider Internal Medicine Gastroenterology
PROC: 0DJ08ZZ Inspection of Upper Intestinal Tract, Via Natural or Artificial Opening Endoscopic (ICD-10-PCS; CPT 43239; principal; 2024-06-26 14:00)
DX: K29.80 Duodenitis without bleeding (principal); K31.9 Disease of stomach and duodenum, unspecified; K44.9 Diaphragmatic hernia without obstruction or gangrene; K22.4 Dyskinesia of esophagus; R11.2 Nausea with vomiting, unspecified; R14.0 Abdominal distension (gaseous); K21.00 Gastro-esophageal reflux disease with esophagitis, without bleeding
CPT/HCPCS: 43239; 43249; C1726; J7120

== ENCOUNTER 2025-02-06 11:17 | Outpatient (CLI) | payer MEDICAID, SELFPAY ==
[2025-02-06 14:52] LABS: Hematocrit 40.6 % (37.0-47.0); Hemoglobin 13.5 g/dL (12.2-16.2); Immature Granulocytes % 0.2 %; Mean Corpuscular HGB Conc 33.3 g/dL (31.8-35.4); Mean Corpuscular Hemoglobin 29.3 pg (27.0-31.2); Mean Corpuscular Volume 88.1 fl (81-99); Nucleated Red Blood Cells % 0 %; Platelet Count 320 K/mm3 (142-424); Red Blood Count 4.61 M/mm3 (4.20-5.40); Red Cell Distribution Width-SD 39.1 fL; White Blood Count 9.1 K/mm3 (4.8-10.8)
[2025-02-06 15:38] LABS: Alanine Aminotransferase 28 U/L (12-78); Albumin Level 4.6 g/dl (3.5-5.0); Albumin/Globulin Ratio 2.1 (1.1-1.8); Alkaline Phosphatase 90 U/L (38-126); Anion Gap 11.0 mEq/L (5-15); Aspartate Amino Transferase 29 U/L (14-36); Bilirubin,Total 0.5 mg/dl (0.2-1.3); Blood Urea Nitrogen 12 mg/dl (7-17); Calcium 9.9 mg/dl (8.4-10.2); Carbon Dioxide 22 mmol/L (22.0-30.0); Chloride 105 mmol/L (98-107); Cholesterol 184 mg/dl (140-200); Creatinine,Serum 0.60 mg/dl (0.52-1.04); Estimated Glomerular Filt Rate 103 ml/min (>60); GFR (African American) 124 ML/MIN (>60); Globulin 2.2 g/dL (1.3-3.2); Glucose 102 mg/dl (74-100); HDL Cholesterol 45 mg/dl (40-60); Potassium 4.0 mmoL/L (3.5-5.1); Sodium 134 mmol/L (136-145); Total Protein,Serum 6.8 g/dl (6.3-8.2); Triglycerides 228 mg/dl (30-150)
[2025-02-06 16:07] LABS: Thyroid Stimulating Hormone 0.48 uIU/mL (0.465-4.68)
[2025-02-06 16:23] LABS: Hepatitis C Ab Qual. W/ RFX NEGATIVE (Negative)
[2025-02-08 04:09] LABS: Hepatitis B Surface Antigen Negative (Negative)
== END 2025-02-06 23:59 | disposition home or self-care (01) ==
LOC: LAB.DROPOF 02-07 14:01
PROVIDERS: PCP Nurse Practitioner Family; Visit Provider Nurse Practitioner Family
DX: R53.83 Other fatigue (principal); R68.89 Other general symptoms and signs; Z11.59 Encounter for screening for other viral diseases
CPT/HCPCS: 80053; 80061; 84443; 85025; 86803; 87340; 87389

== ENCOUNTER 2025-02-08 10:34 | Outpatient (CLI) | payer MEDICAID, SELFPAY ==
--- NOTE | 2025-02-08 10:36 | XR_ITS ---
FINAL REPORT CLINICAL HISTORY: R Post shoulder pain x2 years nki COMPARISON: None FINDINGS: RIGHT SHOULDER Three views demonstrate no acute fracture or dislocation. The visualized joint spaces are normally aligned. The soft tissues are unremarkable. IMPRESSION: No acute process. Reviewed, Interpreted and Dictated by Moo Hill MD Transcribed by Jazmin Conte Authenticated and [facility]
== END 2025-02-08 23:59 | disposition home or self-care (01) ==
LOC: RAD 10:35
PROVIDERS: PCP Nurse Practitioner Family; Visit Provider Nurse Practitioner Family
DX: M25.511 Pain in right shoulder (principal)
CPT/HCPCS: 73030